=== PATIENT | female | born 1950 | race Caucasian/White ===

== ENCOUNTER 2021-02-08 11:02 | Emergency (ER) | payer MEDICARE ==
[~2021-02-08] VITALS: Ht 167.6 cm; Wt 74.8 kg
[~2021-02-08 11:02] MED LIST: CARISOPRODOL350 MG PO; ESTRACE2 MG PO; HYDROCODON-ACE1 EAC8 PO; LOSARTAN POTAS100 MG PO; LOVASTATIN20 MG PO; MELOXICAM15 MG PO; NORCO 5-325 TA1 EACH PO; QVAR7.3 G1 INH; TYLENOL WITH C1 EACH PO
[2021-02-08] MEDS ORDERED: ASPIRIN81 MG PO (11:31)
[2021-02-08] MEDS ORDERED: OMEPRAZOLE20 M2 (11:32)
[2021-02-08] MEDS ORDERED: DOXYCYCLINE HY100 MG PO (13:00)
--- NOTE | 2021-02-10 12:37 | CONS ---
[facility] [address], [place] [address] Signed DATE OF CONSULTATION: 02/08/2021 CONSULTING PHYSICIAN: Casey Langston MD REQUESTING PHYSICIAN: Dr. Back. PROBLEM: "Left breast abscess." HISTORY: This 70-year-old white woman is a patient of Dr. Kirby Nieves. The patient lives locally, but continues to see Dr. Nieves in [place]. The patient recently had a mammogram, which was said to be normal. She was seen by Dr. Nieves with a small nodule in the medial aspect of the left breast, which at that time was not particularly uncomfortable. In the past 24 hours, the area has become more swollen, erythematous, and quite tender. She presented to the emergency room where she was evaluated by Dr. Back and diagnosis of breast abscess was made. It is notable that she has had incision and drainage of this area in the past for infection. She has no family history or personal history of breast cancer or other issue. REVIEW OF SYSTEMS: She has had no fever or chills. No nipple discharge or other problem. PHYSICAL EXAMINATION: GENERAL: A pleasant white woman, who looks to be not systemically toxic. Her BMI is 26.6. VITAL SIGNS: Show a temperature of 98, pulse is 74, blood pressure 132/103, O2 saturation on room air 98%. CHEST: Shows normal respiratory excursion. Trachea is midline. The left breast is externally examined and found to have no sign of generalized erythema. There is a focal area in the medial aspect of the left breast, which shows approximately 2-1/2 cm area of erythema. Gentle palpation reveals a somewhat nodular area, which was quite tender consistent with abscess. There is a transverse incision located in the area as well. ASSESSMENT: I am not sure this represents breast abscess proper. She has had similar problem in the past. This was incised and drained in the office of Dr. Nieves in the past. I believe more likely this represents a recurrent infected epidermal inclusion cyst. Notably, she Electronically Signed By: CASEY LANGSTON MD 02/10/21 1237 PATIENT NAME: MICHELLE LOPEZ CONSULTATION DATE OF : 54 REPORT #: [id number] PHYSICIAN: CASEY LANGSTON MD PCP: KIRBY NIEVES DO REPORT IS CONFIDENTIAL AND NOT TO BE RELEASED WITHOUT AUTHORIZATION [facility] [address] [place] [id number] Signed describes a small nodule in the area of long-standing, which was present prior to her previous incision and drainage. At this point, I would recommend local anesthesia with incision and drainage and in about 6 weeks or so, see back in the office for definitive excision of what likely be a remaining epidural inclusion cyst. She agrees to this. MD KENNEDI Stewart/ESE /[id number] Copies: ~ Electronically Signed By: CASEY LANGSTON MD 02/10/21 1237 PATIENT NAME: MICHELLE LOPEZ CONSULTATION DATE OF : 54 REPORT #: [id number] PHYSICIAN: CASEY LANGSTON MD PCP: KIRBY NIEVES DO REPORT IS CONFIDENTIAL AND NOT TO BE RELEASED WITHOUT AUTHORIZATION
--- NOTE | 2021-02-10 12:37 | OR ---
[facility] [address], [place] [address] Signed DATE OF OPERATION: 02/08/2021 SURGEON: Casey Langston MD TIME: 12:50 p.m. PREOPERATIVE DIAGNOSIS: Probable infected (recurrent) left medial epidermal inclusion cyst of breast. POSTOPERATIVE DIAGNOSIS: Abscess of left medial epidermal inclusion cyst of breast (recurrent). PROCEDURE: Incision and drainage and debridement of left breast abscess (epidermal inclusion cyst infection). ANESTHESIA: 1% lidocaine. INDICATION: This 70-year-old white woman is a patient Dr. Nieves, presented to the emergency room where she was evaluated by Dr. aBck and found to have an erythematous markedly tender nodule of the medial left breast. She has undergone incision and drainage of this area in the past by Dr. Nieves in the office setting, which was rather prolonged in its healing. She does have diabetes, but not insulin dependent or insulin-requiring. The findings and clinical history suggest to me this represents an infected epidermal inclusion cyst rather than parenchymal lesion of the breast. She did have a mammogram of the breast in the past year that was normal. I have recommended incision and drainage and debridement as appropriate of the lesion. She understands the risks of bleeding, infection, recurrence, and so forth and wished to proceed. It is my intention that once definitive drainage is complete inclusion cyst could be undertaken with a high chance of success. FINDINGS: Indeed, there was an abscess and material consistent with sebaceous cyst contents. Good drainage was afforded. The wound was packed with some gauze. DESCRIPTION OF PROCEDURE: Electronically Signed By: CASEY LANGSTON MD 02/10/21 1237 PATIENT NAME: MICHELLE LOPEZ OPERATIVE REPORT DATE OF : 54 REPORT #: [id number] PHYSICIAN: CASEY LANGSTON MD PCP: KIRBY NIEVES DO REPORT IS CONFIDENTIAL AND NOT TO BE RELEASED WITHOUT AUTHORIZATION [facility] [address] [place] [id number] Signed In the supine position in the ER bed, the left breast area was prepared with Betadine solution and draped sterilely. A 1% lidocaine was injected directly over the site. An incision was made with an #11 blade. This allowed for egress of purulent material. Further probing with a hemostat delivered waxy material, consistent with epidermal inclusion cyst (sebaceous cyst). Good definitive opening of the site was undertaken. Once complete gauze was packed into the wound. Cultures were not obtained. A gauze dressing was applied. She tolerated procedure well. MD KENNEDI Stewart/ESE /[id number] cc: MD Kirby SERNA DO Copies: KIRBY NIEVES DO ~ Electronically Signed By: CASEY LANGSTON MD 02/10/21 1237 PATIENT NAME: MICHELLE LOPEZ OPERATIVE REPORT DATE OF : 54 REPORT #: [id number] PHYSICIAN: CASEY LANGSTON MD PCP: KIRBY NIEVES DO REPORT IS CONFIDENTIAL AND NOT TO BE RELEASED WITHOUT AUTHORIZATION
== END 2021-02-08 13:09 | disposition home or self-care (01) ==
LOC: ED 11:02
DX: L02.213 Cutaneous abscess of chest wall (principal); I10 Essential (primary) hypertension; E78.5 Hyperlipidemia, unspecified; E11.9 Type 2 diabetes mellitus without complications; I48.91 Unspecified atrial fibrillation; Z88.0 Allergy status to penicillin; Z88.1 Allergy status to other antibiotic agents; Z88.2 Allergy status to sulfonamides; Z79.899 Other long term (current) drug therapy; Z79.82 Long term (current) use of aspirin
CPT/HCPCS: 10060; 80048; 85025; 99283-25

== ENCOUNTER 2024-12-02 16:13 | Emergency (ER) | payer MEDICARE, OTHER ==
[~2024-12-02] VITALS: Ht 167.6 cm; Wt 72.4 kg
[~2024-12-02 16:13] MED LIST changes: +ADULT LOW DOSE81 MG PO; +CARVEDILOL3.125 MG PO; +DIAZEPAM5 MG PO; +DOXYCYCLINE HY100 MG PO; +EPLERENONE25 MG PO; +GABAPENTIN300 MG PO; +INSPRA50 MG PO; +IPRAT-ALBUT 0.5-3 ML INH; +LOSARTAN POTASS50 MG PO; +LOVASTATIN40 MG PO; +METFORMIN HCL500 MG PO; +OMEPRAZOLE20 M2 PO; +PROPAFENONE HC300 MG PO; +VENTOLIN HFA18 GM INH; +VITAMIN D350 MC3 PO; +WARFARIN SODIUM1 MG PO; +WARFARIN SODIUM5 MG PO
[2024-12-02] MEDS ORDERED: AMLODIPINE BES2.5 MG PO (16:52)
[2024-12-02] MEDS ORDERED: ELIQUIS5 MG PO (16:52)
[2024-12-02 17:11] LABS: BASOPHILS 0.7 % (0-2); EOSINOPHILS 0.2 % (0-6); HEMATOCRIT 37.7 % (35.0-50.0); HEMOGLOBIN 12.5 g/dL (12.0-18.0); LYMPHOCYTES 11.5 % (24-44); MCH 25.9 (27-36); MCV 78.6 fl (81-99); MONOCYTES 5.6 % (0-12); PLATELET COUNT 269 K/uL (140-440); RDW 16.4 (10.5-15.0)
[2024-12-02 17:22] LABS: INR 1.3 (0.80-1.30); PROTIME 15.4 Sec (11.2-14.2)
[2024-12-02 17:29] LABS: ALBUMIN/GLOBULIN RATIO 1.11 (1.1-2.4); ANION GAP 19.1 (7-21); BUN/CREATININE RATIO 16.92 (6.0-28.6); CALCIUM 9.5 mg/dL (8.5-10.1); CREATININE, SERUM 1.3 mg/dL (0.55-1.02); MAGNESIUM 1.7 mg/dL (1.8-2.4); POTASSIUM 5.1 mmol/L (3.5-5.1); PROTEIN, TOTAL 7.6 g/dL (6.4-8.2)
[2024-12-02] MEDS ORDERED: SODIUM CHLORIDE 0.9% 1,000 ML IV PRN (17:30)
[2024-12-02] MEDS ORDERED: ondansetron HCL 4 MG/2 ML VIAL IV ONE (17:30)
[2024-12-02] MEDS ORDERED: ACETAMINOPHEN 1,000 MG/100 ML VIAL IV ONE (17:30)
[2024-12-02 19:36] LABS: BILIRUBIN, URINE NEGATIVE (negative); BLOOD/HGB, URINE SMALL (Negative); KETONE, URINE SMALL (Negative); LEUK ESTERASE, URINE SMALL (negative); NITRITE, URINE NEGATIVE (negative)
[2024-12-02 19:42] LABS: BACTERIA, URINE 2+ /hpf (negative); CASTS, URINE NONE SEEN \\lpf; COLLECTION TYPE, URINE CLEAN CATCH; CRYSTALS, URINE NONE SEEN (0-1+); EPITHELIAL CELLS, URINE SQUAMOUS 1+ /lpf (0-1+); RED BLOOD CELLS, URINE 0-1 /hpf (0-5); REFLEX CULTURE, URINE Yes (No); WHITE BLOOD CELLS, URINE 21-40 /HPF (0-5)
[2024-12-02] MEDS ORDERED: ONDANSETRON ODT4 MG PO (20:40)
[2024-12-02] MEDS ORDERED: MACROBID 100 M100 MG PO (20:40)
[2024-12-02] MEDS ORDERED: PYRIDIUM200 MG PO (20:41)
[2024-12-02] MEDS ORDERED: ONDANSETRON 4 MG HOME.PACK SL ONE (20:45)
[2024-12-02] MEDS ORDERED: TRAMADOL HCL 50 MG HOME.PACK PO ONE (20:45)
[2024-12-02] MEDS ORDERED: NITROFURANTOIN MONOHYD MACROCR 100 MG HOME.PACK PO ONE (20:45)
[2024-12-02 20:59] VITALS: BP 117/85
--- NOTE | 2024-12-02 21:39 | EKG ---
[facility] [address] [place] [address] Signed Sinus tachycardia Inferior infarct , age undetermined Abnormal ECG When compared with ECG of 11-DEC-2022 15:16, Vent. rate has increased BY 55 BPM Inferior infarct is now present Confirmed by Yony Back MD () on 12/02/2024 9:39:17 PM Electronically Signed By: YONY BACK MD 12/02/24 2139 PATIENT NAME: MICHELLE LOPEZ Electrocardiogram DATE OF : 54 PHYSICIAN: YONY BACK MD REPORT #: [id number] REPORT IS CONFIDENTIAL AND NOT TO BE RELEASED WITHOUT AUTHORIZATION
== END 2024-12-02 20:50 | disposition home or self-care (01) ==
LOC: ED 16:13
PROVIDERS: Emergency Medicine
DX: N39.0 Urinary tract infection, site not specified (principal); I10 Essential (primary) hypertension; E11.9 Type 2 diabetes mellitus without complications; I48.91 Unspecified atrial fibrillation; E78.5 Hyperlipidemia, unspecified; Z79.01 Long term (current) use of anticoagulants; Z79.84 Long term (current) use of oral hypoglycemic drugs; Z79.899 Other long term (current) drug therapy; Z88.2 Allergy status to sulfonamides; Z88.5 Allergy status to narcotic agent; Z88.0 Allergy status to penicillin; Z88.8 Allergy status to other drugs, medicaments and biological substances
CPT/HCPCS: 36415; 71045; 74176; 76705; 80053; 81001; 83690; 83735; 84484; 85025; 85610; 87077; 87088; 87186; 93005; 93010; 96361; 96374; 96375; 99284-25; J0131; J2405; J7030